=== PATIENT | male | born 1985 | race African-American/Black ===

== ENCOUNTER 2017-07-19 20:35 | Inpatient (IN) | payer BC ==
[2017-07-19] MEDS: IV NORMAL SALINE 1000ML BAG 1,000 ML IV (21:18)
[2017-07-19 21:23] LABS: ADD MAN DIFF? NO
[2017-07-19 21:36] LABS: BASO # 0.1 x10^3/uL (0.0-0.2); BASO % 0 % (0-3); EOS % 0 % (0-3); HEMATOCRIT 42.6 % (39.0-53.0); HEMOGLOBIN 14.3 g/dL (13.0-17.5); LYMPH % 15 % (24-48); MEAN CORPUSCULAR HEMOGLOBIN 27 pg (25-35); MEAN CORPUSCULAR HGB CONC 34 g/dL (31-37); MEAN CORPUSCULAR VOLUME 81 fL (79-100); MONO # 1.2 x10^3/uL (0.0-1.1); MONO % 10 % (0-9); NEUT # 9.8 x10^3uL (1.8-7.7); NEUT % 75 % (31-73); PLATELET COUNT 339 x10^3/uL (140-400); RED BLOOD COUNT 5.29 x10^6/uL (4.30-5.70); RED CELL DISTRIBUTION WIDTH 14.4 % (11.5-14.5); WHITE BLOOD COUNT 13.1 x10^3/uL (4.0-11.0)
[2017-07-19 21:43] LABS: TROPONINI < 0.017 ng/mL (0.000-0.055)
[2017-07-19 21:47] LABS: ANION GAP 11 (6-14); BLOOD UREA NITROGEN 12 mg/dL (8-26); BUN/CREATININE RATIO 12 (6-20); CALCIUM 8.4 mg/dL (8.5-10.1); CARBON DIOXIDE 23 mmol/L (21-32); CHLORIDE 105 mmol/L (98-107); GFR 104.1; GLUCOSE 139 mg/dL (70-99); POTASSIUM 3.6 mmol/L (3.5-5.1); PROTHROMBIN TIME PATIENT 12.2 SEC (11.7-14.0); SODIUM 139 mmol/L (136-145)
[2017-07-19 21:49] LABS: NT-PRO BNP 36 pg/mL (0-124)
[2017-07-19 21:49] LABS: CKMB INDEX 0.2 % (0-4); CKMB MASS 1.1 ng/mL (0.0-3.6); CREATINE KINASE 616 U/L (39-308)
[2017-07-19 21:50] LABS: ALBUMIN 3.6 g/dL (3.4-5.0); ALBUMIN/GLOBULIN RATIO 1.2 (1.0-1.7); ALK PHOS 78 U/L (46-116); ALT (SGPT) 35 U/L (16-63); AST (SGOT) 22 U/L (15-37); CREATINE KINASE 603 U/L (39-308); TOTAL BILIRUBIN 0.2 mg/dL (0.2-1.0); TOTAL PROTEIN 6.7 g/dL (6.4-8.2)
[2017-07-19 22:07] LABS: C-REACTIVE PROTEIN 14.8 mg/L (0-3.3)
[2017-07-19] MEDS ORDERED: CONTRAST GIVEN. MC (22:30)
[2017-07-19] MEDS: IOHEXOL 300 MG/ML 100ML VIAL. IV (22:30)
[2017-07-19 22:47] LABS: SEDIMENTATION RATE 7 (0-15)
[2017-07-19] MEDS: IBUPROFEN 600 MG TABLET. PO (23:18)
[2017-07-20] MEDS ORDERED: IBUPROFEN 600 MG TABLET. PO (00:15)
[2017-07-20 05:52] LABS: TROPONINI < 0.017 ng/mL (0.000-0.055)
[2017-07-20 08:34] LABS: TROPONINI < 0.017 ng/mL (0.000-0.055)
[2017-07-20] MEDS ORDERED: ONDANSETRON PF 4 MG/2 ML VIAL. IV (08:45)
[2017-07-20 08:46] LABS: URIC ACID 6.1 mg/dL (3.5-7.2)
[2017-07-20] MEDS: FAMOTIDINE 20 MG TABLET. PO ×2 (08:55→20:59)
[2017-07-20] MEDS: IBUPROFEN 800 MG TABLET. PO ×3 (08:55→20:59)
[2017-07-20 09:11] LABS: THYROID STIM HORMONE (TSH) 0.501 uIU/mL (0.358-3.74)
[2017-07-20] MEDS: SERTRALINE 50 MG TABLET. PO (10:13)
[2017-07-20] MEDS: IV NORMAL SALINE 1000ML BAG 1,000 ML IV ×2 (10:16→17:14)
[2017-07-20] MEDS: AZITHROMYCIN 250 MG TABLET. PO (14:12)
[2017-07-20 15:31] LABS: MYCOPLASMA PATIENT NEGATIVE (NEGATIVE); NEGATIVE OBC MYCO NEG; POSITIVE OBC MYCO POS
[2017-07-21] MEDS: IV NORMAL SALINE 1000ML BAG 1,000 ML IV ×2 (01:03→06:35)
[2017-07-21 03:56] LABS: ADD MAN DIFF? NO
[2017-07-21 04:00] LABS: BASO % 0 % (0-3); EOS # 0.1 x10^3/uL (0.0-0.7); EOS % 2 % (0-3); HEMATOCRIT 41.8 % (39.0-53.0); LYMPH # 1.6 x10^3/uL (1.0-4.8); LYMPH % 22 % (24-48); MEAN CORPUSCULAR HEMOGLOBIN 27 pg (25-35); MEAN CORPUSCULAR HGB CONC 34 g/dL (31-37); MEAN CORPUSCULAR VOLUME 82 fL (79-100); MONO % 13 % (0-9); NEUT # 4.6 x10^3uL (1.8-7.7); NEUT % 63 % (31-73); PLATELET COUNT 308 x10^3/uL (140-400); RED BLOOD COUNT 5.12 x10^6/uL (4.30-5.70); RED CELL DISTRIBUTION WIDTH 14.7 % (11.5-14.5); WHITE BLOOD COUNT 7.4 x10^3/uL (4.0-11.0)
[2017-07-21 04:20] LABS: ANION GAP 8 (6-14); BLOOD UREA NITROGEN 8 mg/dL (8-26); CALCIUM 8.2 mg/dL (8.5-10.1); CARBON DIOXIDE 24 mmol/L (21-32); CHLORIDE 109 mmol/L (98-107); CREATINE KINASE 282 U/L (39-308); CREATININE 0.8 mg/dL (0.7-1.3); GFR 134.7; GLUCOSE 134 mg/dL (70-99); POTASSIUM 3.6 mmol/L (3.5-5.1); SODIUM 141 mmol/L (136-145)
[2017-07-21] MEDS: IBUPROFEN 800 MG TABLET. PO (05:41)
[2017-07-21] MEDS: FAMOTIDINE 20 MG TABLET. PO (10:07)
[2017-07-21] MEDS: POTASSIUM CHLORIDE 20 MEQ TABLET.ER. PO (10:07)
[2017-07-21] MEDS: SERTRALINE 50 MG TABLET. PO (10:07)
[2017-07-21 11:24] LABS: LEGIONELLA AG UR Negative (Negative)
[2017-07-21 11:24] LABS: SPECIMEN SOURCE Urine (.); STREP PNEUMO ANTIGEN Negative (Negative)
== END 2017-07-21 11:43 | disposition home or self-care (01) | DRG 315 ==
LOC: 5 NORTH 07-20 00:45 → ER 20:35
DX: I30.1 Infective pericarditis (principal); M62.82 Rhabdomyolysis; J98.11 Atelectasis; K21.9 Gastro-esophageal reflux disease without esophagitis; B97.89 Other viral agents as the cause of diseases classified elsewhere; D72.829 Elevated white blood cell count, unspecified; E66.9 Obesity, unspecified; F17.210 Nicotine dependence, cigarettes, uncomplicated; F32.9 Major depressive disorder, single episode, unspecified; I10 Essential (primary) hypertension; F12.90 Cannabis use, unspecified, uncomplicated; R07.89 Other chest pain; Z79.899 Other long term (current) drug therapy; Z82.49 Family history of ischemic heart disease and other diseases of the circulatory system; Z68.35 Body mass index [BMI] 35.0-35.9, adult; Z71.6 Tobacco abuse counseling
CPT/HCPCS: 36415; 71045; 71275; 80048; 80053; 82550; 82553; 83880; 84443; 84484; 84550; 85025; 85610; 85651; 86140; 86738; 87449; 93005; 93306; 99285; 99285-25; J7030; Q0144; Q9967